=== PATIENT | male | born 1990 | race Hispanic/Latino ===

== ENCOUNTER 2021-04-21 16:39 | Inpatient (IN) | payer OTHER ==
[~2021-04-21] VITALS: Ht 175.3 cm; Wt 91.4 kg
[2021-04-21] MEDS ORDERED: 0.9%NACL 1000ML 1,000 ML IV ONE ×2 (17:00→17:08)
[2021-04-21] MEDS ORDERED: KETOROLAC 30MG VIAL (30MG/ML) IV ONE (17:00)
[2021-04-21] MEDS ORDERED: KETOROLAC 30MG VIAL (30MG/ML) ONE (17:09)
[2021-04-21 17:17] LABS: BASOPHILS % (AUTO) 0.5 % (0.0-5.0); HEMATOCRIT 39.8 % (42-54); LYMPHOCYTES % (AUTO) 38.6 % (21.0-51.0); MEAN CORPUSCULAR HEMOGLOBIN 30.3 pg (27.0-33.0); MEAN CORPUSCULAR HGB CONC 33.2 g/dL (32.0-36.0); MEAN CORPUSCULAR VOLUME 91.3 fL (79-99); MONOCYTES % (AUTO) 8.9 % (3.0-13.0); NEUTROPHILS % (AUTO) 51.5 % (40.0-77.0); PLATELET COUNT (AUTO) 100 K/uL (130-400); RED BLOOD CELL COUNT(AUTO) 4.36 MIL/uL (4.50-6.20); RED CELL DISTRIBUTION WIDTH 11.9 % (11.0-15.5)
[2021-04-21 17:23] LABS: CREATININE 0.9 mg/dL (0.5-1.5); POTASSIUM 3.7 mmol/L (3.5-5.1)
[2021-04-21 17:46] LABS: ALBUMIN 3.1 g/dL (3.5-5.0); BILIRUBIN,TOTAL 0.5 mg/dL (0.2-1.0); TOTAL PROTEIN, SERUM 6.5 g/dL (6.0-8.3)
[2021-04-21 18:47] LABS: APPEARANCE,URINE Clear (CLEAR); BILIRUBIN,URINE Negative (NEGATIVE); COLOR,URINE Dark Yellow (YELLOW); GLUCOSE, URINE (UA) Negative (NEGATIVE); KETONES,URINE Negative (NEGATIVE); LEUKOCYTE ESTERASE ,URINE Negative (NEGATIVE); NITRATE,URINE Positive (NEGATIVE); OCCULT BLOOD,URINE Negative (NEGATIVE); PH,URINE 6.5 (5.0-8.0); PROTEIN,URINE POS 1+ mg/dL (NEGATIVE)
[2021-04-21 18:55] LABS: AMPHET/METH SCREEN,URINE POSITIVE (NEGATIVE); BARBITURATE SCREEN, URINE NEGATIVE (NEGATIVE); BENZODIAZEPINES SCREEN,URINE NEGATIVE (NEGATIVE); CANNABINOID SCREEN,URINE NEGATIVE (NEGATIVE); COCAINE SCREEN,URINE NEGATIVE (NEGATIVE); OPIATE SCREEN,URINE NEGATIVE (NEGATIVE); PHENCYCLIDINE SCREEN,URINE NEGATIVE (NEGATIVE)
[2021-04-21 19:23] LABS: BACTERIA,URINE Rare /HPF (None Seen); RBC,URINE 0-1 /HPF (0-1); SQUAMOUS EPITHELIAL CELL,UR Rare /HPF (0-2)
[2021-04-21] MEDS ORDERED: GUAIFENESIN-DM 200/20 MG 10 ML PO PRN (19:30)
[2021-04-21] MEDS ORDERED: LACTULOSE 20 GM/30 ML UDCUP PO PRN (19:30)
[2021-04-21] MEDS ORDERED: HYDRALAZINE 20MG/ML VIAL IV PRN (19:30)
[2021-04-21] MEDS ORDERED: DIPHENHYDRAMINE HCL 25 MG CAPSULE PO PRN (19:30)
[2021-04-21] MEDS ORDERED: ONDANSETRON 4MG INJ IV PRN (19:30)
[2021-04-21] MEDS ORDERED: HYDROCODONE/ACETAMINOPHEN 5/325 MG TAB PO PRN ×2 (19:30)
[2021-04-21] MEDS ORDERED: ACETAMINOPHEN 325 MG TAB PO PRN (19:30)
[2021-04-21] MEDS: 0.9%NACL 1000ML 1,000 ML IV SCH (19:57)
[2021-04-21] MEDS ORDERED: CEFTRIAXONE 1G VIAL IVP ONE (20:00)
[2021-04-21] MEDS: DOCUSATE SODIUM 100 MG CAP PO SCH (20:44)
[2021-04-21] MEDS: CEFTRIAXONE 1G VIAL IVP SCH (21:00)
[2021-04-21] MEDS: M.V.I. IV [ADULT] 10 ML, THIAMINE HCL 100 MG in 0.9%NACL 1000ML 1,000 ML IV SCH (21:58)
[2021-04-21] MEDS ORDERED: LORAZEPAM 2 MG/ML 1 ML VIAL ONE (22:23)
[2021-04-21] MEDS: FOLIC ACID 1 MG TABLET PO SCH (22:40)
[2021-04-22] MEDS: 0.9%NACL 1000ML 1,000 ML IV SCH ×2 (05:25→15:31)
[2021-04-22 08:10] LABS: ALBUMIN 3.1 g/dL (3.5-5.0); BILIRUBIN,DIRECT 0.1 mg/dL (0.0-0.3); BILIRUBIN,TOTAL 0.4 mg/dL (0.2-1.0); TOTAL PROTEIN, SERUM 6.4 g/dL (6.0-8.3)
[2021-04-22] MEDS: M.V.I. IV [ADULT] 10 ML, THIAMINE HCL 100 MG in 0.9%NACL 1000ML 1,000 ML IV SCH (09:00)
[2021-04-22 09:55] VITALS: BP 111/63
[2021-04-22] MEDS: DOCUSATE SODIUM 100 MG CAP PO SCH ×2 (10:22→20:28)
[2021-04-22] MEDS: FOLIC ACID 1 MG TABLET PO SCH (10:22)
[2021-04-22 12:00] VITALS: BP 116/60
[2021-04-22 16:00] VITALS: BP 103/59
[2021-04-22 20:12] VITALS: BP 106/61
[2021-04-22] MEDS: CEFTRIAXONE 1G VIAL IVP SCH (20:28)
[2021-04-23 00:16] VITALS: BP 102/47
[2021-04-23] MEDS: 0.9%NACL 1000ML 1,000 ML IV SCH ×3 (01:22→21:34)
[2021-04-23 04:16] VITALS: BP 107/62
[2021-04-23 05:59] LABS: BASOPHILS % (AUTO) 0.6 % (0.0-5.0); EOSINOPHILS % (AUTO) 0.9 % (0.0-8.0); HEMATOCRIT 37.9 % (42-54); MEAN CORPUSCULAR HEMOGLOBIN 30.5 pg (27.0-33.0); MEAN CORPUSCULAR HGB CONC 33.5 g/dL (32.0-36.0); MEAN CORPUSCULAR VOLUME 90.9 fL (79-99); MONOCYTES % (AUTO) 13.6 % (3.0-13.0); NEUTROPHILS % (AUTO) 34.6 % (40.0-77.0); PLATELET COUNT (AUTO) 141 K/uL (130-400); RED BLOOD CELL COUNT(AUTO) 4.17 MIL/uL (4.50-6.20); RED CELL DISTRIBUTION WIDTH 12.2 % (11.0-15.5); WHITE BLOOD COUNT (AUTO) 3.5 K/uL (4.8-10.8)
[2021-04-23 06:14] LABS: CREATININE 0.6 mg/dL (0.5-1.5); PHOSPHORUS 3.7 mg/dL (2.5-4.9); POTASSIUM 3.9 mmol/L (3.5-5.1)
[2021-04-23 08:00] VITALS: BP 109/69
[2021-04-23] MEDS: M.V.I. IV [ADULT] 10 ML, THIAMINE HCL 100 MG in 0.9%NACL 1000ML 1,000 ML IV SCH (08:46)
[2021-04-23] MEDS: FOLIC ACID 1 MG TABLET PO SCH (08:46)
[2021-04-23] MEDS: DOCUSATE SODIUM 100 MG CAP PO SCH ×2 (08:46→21:24)
[2021-04-23 12:00] VITALS: BP 105/72
[2021-04-23 13:53] LABS: RAPID PLASMA REAGIN REACTIVE (NONREACTIVE)
[2021-04-23 13:54] LABS: RAPID PLASMA REAGIN TITER REACTIVE 1:4 (NONREACTIVE)
[2021-04-23 14:10] LABS: HEPATITIS B CORE IGM Negative (Negative)
[2021-04-23 16:00] VITALS: BP 109/69
[2021-04-23 20:12] VITALS: BP 113/69
[2021-04-23] MEDS ORDERED: TRAZODONE HCL 50 MG TAB PO SCH (21:00)
[2021-04-23] MEDS: CEFTRIAXONE 1G VIAL IVP SCH (21:23)
[2021-04-24] VITALS: BP 123/79
[2021-04-24 04:00] VITALS: BP_SYST 108; BP_SYST 139; BP_DIAS 61; BP_DIAS 88
[2021-04-24] MEDS ORDERED: PHARMACY COMMUNICATION MISC SCH (05:00)
[2021-04-24] MEDS ORDERED: M.V.I. IV [ADULT] 10 ML, THIAMINE HCL 100 MG in 0.9%NACL 1000ML 1,000 ML IV SCH (05:00)
[2021-04-24] MEDS: 0.9%NACL 1000ML 1,000 ML IV SCH (06:19)
[2021-04-24 08:00] VITALS: BP 113/64
[2021-04-24] MEDS: DOCUSATE SODIUM 100 MG CAP PO SCH (08:32)
[2021-04-24 12:00] VITALS: BP 114/75
[2021-04-24 16:00] VITALS: BP 120/79
[2021-04-24] MEDS ORDERED: CEPH500B PO (16:28)
[2021-04-24] MEDS ORDERED: DOCU-270 PO (16:28)
[2021-04-25 11:10] LABS: HEPATITIS Bs ANTIGEN SCREEN P Negative (Negative)
== END 2021-04-24 17:06 | disposition home or self-care (01) | DRG 977 ==
LOC: EDH 16:39 → EDHIP 16:40 → 3BH 04-22 10:04
PROVIDERS: ADMIT Hospitalist; ATTEND Hospitalist
DX: B20 Human immunodeficiency virus [HIV] disease (principal); N39.0 Urinary tract infection, site not specified; M62.82 Rhabdomyolysis; E86.0 Dehydration; D72.819 Decreased white blood cell count, unspecified; K59.00 Constipation, unspecified; F17.210 Nicotine dependence, cigarettes, uncomplicated; Z71.89 Other specified counseling
CPT/HCPCS: 36415; 71045; 80048; 80053; 80076; 80305; 81001; 82330; 82550; 82948; 83735; 84100; 84145; 84484; 85025; 86359; 86360; 86361; 86592; 86692; 86701; 86704; 86705; 86706; 86708; 86709; 86717; 86777; 86778; 86780; 86804; 86812; 87088; 87283; 87340; 87350; 87390; 87517; 87522; 87536; 87635; 87900; 87901; 93005; C9803; G0378; J0696; J1885; J2060; J3411; J7030